=== PATIENT | female | born 1975 | race Caucasian/White ===

== ENCOUNTER 2016-10-15 15:31 | Inpatient (IN) | payer OTHER ==
[~2016-10-15] VITALS: Ht 160 cm; Wt 82.6 kg
[2016-10-15 15:36] VITALS: BP 152/84
--- NOTE | 2016-10-15 15:46 | NUR ---
PATIENT BIB BLS TO ER BED 8.
--- NOTE | 2016-10-15 15:50 | NUR ---
41F BIBA FROM PT'S DOCTOR'S OFFICE C/O EPIGASTRIC PAIN, ACHING, RADIATES TO RT LOWER ABDOMEN, 12/19 X 1 1/2 WEEKS, WORSENING TODAY; PT STATES NO N/V/D AT THIS TIME; ABDOMEN SOFT, NON-TENDER, ACTIVE BOWEL SOUNDS X 4 QUADRANTS; PT AA&OX4, PERRLA, BL LUNG SOUNDS CLEAR, RR EVEN/UNLABORED, SKIN IS WARM/DRY/INTACT AT THIS TIME; PT RESTING IN BED W/ HOB ELEVATED AND IN LOWEST POSITION; POSITIONED FOR COMFORT; ER MD MADE AWARE OF STATUS. WILL CONTINUE TO MONITOR.
--- NOTE | 2016-10-15 16:00 | NUR ---
PATIENT BEING EVALUATED BY DR. SIEGEL.
[2016-10-15] MEDS ORDERED: NACL 0.9% 1,000 ML IV ONE ×2 (16:05→19:00)
[2016-10-15] MEDS ORDERED: HYDROmorphone 1 MG/ML AMP IVP ONE (16:05)
[2016-10-15 16:35] LABS: BASOPHILS # (AUTO) 0.1 K/uL (0.00-0.22); BASOPHILS % (AUTO) 1.1 % (0.0-2.0); EOSINOPHILS # (AUTO) 0.2 K/uL (0-0.4); EOSINOPHILS % (AUTO) 2.2 % (0.0-4.0); HEMATOCRIT 41.7 % (36-48); HEMOGLOBIN 13.6 g/dL (12.0-16.0); LYMPHOCYTES % (AUTO) 8.7 % (20.5-51.1); MEAN CORPUSCULAR HEMOGLOBIN 29 pg (27-31); MEAN CORPUSCULAR HGB CONC 33 g/dL (33-37); MEAN CORPUSCULAR VOLUME 88 fL (80-94); MONOCYTES # (AUTO) 0.4 K/uL (0.8-1.0); MONOCYTES % (AUTO) 3.5 % (1.7-9.3); NEUTROPHILS # (AUTO) 9.4 K/uL (1.8-7.7); NEUTROPHILS % (AUTO) 84.5 % (42.2-75.2); PLATELET COUNT (AUTO) 236 K/uL (140-450); RED BLOOD CELL COUNT(AUTO) 4.73 MIL/uL (4.20-5.40); RED CELL DISTRIBUTION WIDTH 13.9 % (11.6-13.7); WHITE BLOOD COUNT (AUTO) 11.1 K/uL (4.8-10.8)
[2016-10-15 16:36] LABS: APPEARANCE,URINE CLEAR (CLEAR); BILIRUBIN,URINE NEGATIVE (NEGATIVE); BLOOD, URINE NEGATIVE (NEGATIVE); COLOR,URINE YELLOW (YELLOW); LEUKOCYTE ESTERASE ,URINE 1+ (NEGATIVE); NITRITE, URINE NEGATIVE (NEGATIVE); PROTEIN,URINE NEGATIVE (NEGATIVE); UGLUCOSE NEGATIVE (NEGATIVE); UROBILINOGEN,URINE 0.2 EU/dL (0.2 - 1)
[2016-10-15 16:43] LABS: BACTERIA,URINE 1+ /HPF (None Seen); MUCUS,URINE 1+ /LPF (None Seen); RBC,URINE 0-3 /HPF (0-5); SQUAMOUS EPITHELIAL CELL,UR 0-3 /LPF (0-3 (FEW)); WBC,URINE 0-3 /HPF (0-5)
[2016-10-15 16:58] LABS: ALBUMIN 3.8 g/dL (3.4-5.0); ANION GAP 17.5 (8-16); CALCIUM 8.6 mg/dL (8.5-10.1); CREATININE 0.8 mg/dL (0.6-1.3); POTASSIUM 3.5 mmol/L (3.5-5.1); TOTAL BILIRUBIN 0.2 mg/dL (0.0-1.0); TOTAL PROTEIN, SERUM 7.6 g/dL (6.4-8.2)
[2016-10-15 17:00] LABS: LACTIC ACID 0.7 mmol/L (0.4-2.0)
--- NOTE | 2016-10-15 17:58 | NUR ---
PT TAKEN TO CT VIA W/C ACCOMPANIED BY SENIOR RESIDENT CARE DIRECTOR.
--- NOTE | 2016-10-15 18:30 | NUR ---
PT APPEARS TO BE RESTING COMFORTABLY IN BED; RR EVEN/UNLABORED; POSITIONED FOR COMFORT; WILL CONTINUE TO MONITOR.
--- NOTE | 2016-10-15 19:08 | NUR ---
Pt report given to KEYON MICHAEL. Transfer of care at this time.
--- NOTE | 2016-10-15 19:10 | NUR ---
RECEIVED REPORT FROM MORNING NURSE, PT IS AAOX4, DENIES PAIN, NO SOB/DISTRESS AT THIS TIME, VSS, WAITING FOR ADMITION.
[2016-10-15] MEDS ORDERED: MORPHINE SULFATE 2 MG/ML SYR IVP PRN (19:30)
[2016-10-15] MEDS ORDERED: ACETAMINOPHEN 325 MG TAB PO PRN (19:30)
[2016-10-15] MEDS ORDERED: MORPHINE SULFATE 4 MG/ML SYR IVP PRN (19:30)
[2016-10-15] MEDS ORDERED: ONDANSETRON 4 MG/2 ML VIAL IVP PRN ×3 (19:30→23:30)
[2016-10-15] MEDS ORDERED: MEROPENEM 1,000 MG in NACL 0.9% 100 ML IV ONE (19:45)
--- NOTE | 2016-10-15 20:00 | NUR ---
REPORT GIVEN TO KEYON GARNICA, PT IS IN STABLE CONDITION, PT WILL TRANSFER TO ROOM 105B.
[2016-10-15 20:03] LABS: PROTHROMBIN TIME 9.9 secs (10.8-13.4)
[2016-10-15 20:30] VITALS: BP 119/74
--- NOTE | 2016-10-15 20:30 | NUR ---
RECEIVED PT FROM ER VIA WHEELCHAIR PT IS AAOX4 AMBULATORY HL ON RT AC GAUGE # 20 PATENT, DENIES ANY ABD PAIN PAIN MEDIC WAS GIVEN IN ER PT IS ;ORIENTED TO THE FLOOR CALL LIGHT WITHIN REACH
[2016-10-15] MEDS: NACL 0.9% 1,000 ML IV SCH (20:39)
[2016-10-15] MEDS ORDERED: MEROPENEM 1,000 MG VIAL IV ONE (21:02)
--- NOTE | 2016-10-15 21:30 | NUR ---
DR MELY MARTINES CALLED TO BE NOTIFY PT CONDITION AND ORDER TO FOLLOW
--- NOTE | 2016-10-15 22:00 | NUR ---
PT SIGN CONSENT FOR LAPAROSCOPIC APPENDECTOMY POSSIBLE OPEN, TICKET TO RIDE READY
--- NOTE | 2016-10-15 22:37 | NUR ---
DR BOONE IS HERE AND SEE THE PT
--- NOTE | 2016-10-15 22:50 | NUR ---
PT IS TAKEN TO OR
[2016-10-15] MEDS ORDERED: PHENYLEPHRINE 10 MG/ML VIAL ONE (22:58)
[2016-10-15] MEDS ORDERED: PROPOFOL 200 MG/20 ML VIAL IV ONE (22:58)
[2016-10-15] MEDS ORDERED: ROCURONIUM 50 MG/5 ML VIAL IV ONE (22:58)
[2016-10-15] MEDS ORDERED: KETOROLAC 30 MG/ML VIAL ONE (22:58)
[2016-10-15] MEDS ORDERED: DEXAMETHASONE 4 MG/ML VIAL ONE (22:58)
[2016-10-15] MEDS ORDERED: DESFLURANE 240 ML BTL INH ONE (22:58)
[2016-10-15] MEDS ORDERED: SUCCINYLCHOLINE CHLORIDE 200 MG/10 ML VIAL IVP ONE (22:58)
[2016-10-15] MEDS ORDERED: ONDANSETRON 4 MG/2 ML VIAL ONE (22:58)
[2016-10-15] MEDS ORDERED: GLYCOPYRROLATE 0.2 MG/ML VIAL ONE (22:58)
[2016-10-15] MEDS ORDERED: MIDAZOLAM 2 MG/2 ML VIAL ONE (23:10)
[2016-10-15] MEDS ORDERED: fentaNYL 0.05 MG/ML VIAL ONE (23:11)
[2016-10-15] MEDS ORDERED: BUPIVACAINE-MPF/EPI 0.25% 10 ML VIAL INJ ONE (23:12)
[2016-10-15] MEDS ORDERED: BUPIVACAINE-MPF/EPI 0.25% 30 ML VIAL INJ ONE (23:12)
[2016-10-15] MEDS ORDERED: HYDROmorphone 1 MG/ML AMP IVP PRN ×2 (23:30)
[2016-10-16] MEDS ORDERED: HYDROmorphone 1 MG/ML AMP IVP PRN (00:10)
[2016-10-16] MEDS ORDERED: ACETAMINOPHEN 325 MG TAB PO PRN (00:10)
[2016-10-16] MEDS ORDERED: MORPHINE SULFATE 4 MG/ML SYR IV PRN (00:10)
[2016-10-16] MEDS ORDERED: ONDANSETRON 4 MG/2 ML VIAL IV PRN (00:10)
[2016-10-16] MEDS: NACL 0.9% 1,000 ML IV SCH ×3 (00:11→16:46)
[2016-10-16] MEDS: HYDROmorphone PFS 2 MG/ML SYR ONE ×2 (00:23→00:33)
[2016-10-16 01:00] VITALS: BP 116/73
--- NOTE | 2016-10-16 01:00 | NUR ---
PT CAME BACK FROM SURGERY S/P LAP APPENDECTOMY , AAOX4 DENIES ANY PAIN AT THIS TIME ABD WITH THREE SMALL ABD INSICION COVERAGE WITH BAND AID DRY AND INTACT PT REORIENTED TO THE FLOOR CALL LIGHT WITHIN REACH
--- NOTE | 2016-10-16 03:00 | NUR ---
PT SLEEPING WELL DENIES ANY PAIN, ON BILATERAL SEQUENTIAL STOCKING IV ON RT AC INFUSING WELL
[2016-10-16 04:00] VITALS: BP 105/65
--- NOTE | 2016-10-16 05:00 | NUR ---
PT IS ASSISTED TO THE RESTROOM VOIDING WELL
[2016-10-16] MEDS: HYDROcodone/APAP 5/325 MG 1 TAB TAB PO PRN ×3 (05:06→15:15)
[2016-10-16] MEDS ORDERED: PIPERACILLIN/TAZOBACTAM 3.375 GM VIAL IV ONE (05:39)
[2016-10-16] MEDS: PIPER/TAZO 3.375GM/D5W PREMIX 50 ML IV SCH ×3 (05:46→18:27)
[2016-10-16 06:28] LABS: HEMATOCRIT 36.4 % (36-48); HEMOGLOBIN 12.2 g/dL (12.0-16.0); MEAN CORPUSCULAR HEMOGLOBIN 29 pg (27-31); MEAN CORPUSCULAR HGB CONC 34 g/dL (33-37); MEAN CORPUSCULAR VOLUME 88 fL (80-94); PLATELET COUNT (AUTO) 214 K/uL (140-450); RED BLOOD CELL COUNT(AUTO) 4.15 MIL/uL (4.20-5.40); RED CELL DISTRIBUTION WIDTH 13.8 % (11.6-13.7); WHITE BLOOD COUNT (AUTO) 9.6 K/uL (4.8-10.8)
--- NOTE | 2016-10-16 06:34 | NUR ---
AFTER PAIN MEDIC GIVEN PT SLEEPING WELL NOT DISTRESS NOTED IV ON RT AC INFUSING WELL
--- NOTE | 2016-10-16 06:59 | NUR ---
PATIENT HAS BEEN SCREENED AND CATEGORIZED MODERATE NUTRITION RISK. PATIENT WILL BE SEEN WITHIN 3-5 DAYS OF ADMISSION. 10/16/16-10/18/16 ALBERT ROCHA MS, RDN
[2016-10-16 07:26] LABS: BAND % (MANUAL) 1 % (0-8); EOSINOPHILS % (MANUAL) 2 % (0-4); LYMPHOCYTES % (MANUAL) 5 % (20-46); MONOCYTES % (MANUAL) 2 % (5-12); NEUTROPHILS % (MANUAL) 90 (43-65)
[2016-10-16 07:27] LABS: PLATELET ESTIMATE ADEQUATE
--- NOTE | 2016-10-16 07:30 | NUR ---
REPORT RECEIVED FROM HEPATOLOGIST PT SLEEPING QUIETLY IN NAD, RESP EVEN UNLABORED ON ROOM AIR, PT AROUSES EASILY BY VOICE, PLAN OF CARE REVIEWED, ALL QUESTIONS ASKED AND ANSWERED, BANDAIDS X3 TO ABD, MOD AMT OF DRY BLOOD ON RIGHT LAT BANDAID, THE OTHERS CLEAN DRY INTACT, ABD SOFT, TENDER TO PALP, NON DISTENDED. + BS X4 Q, CALL HOLDER WITHIN REACH, SIDE RAILS UP, BED LOCKED IN LOW POSITION, WILL CONTINUE TO MONITOR.
[2016-10-16 07:49] LABS: ANION GAP 13.4 (8-16); CALCIUM 7.7 mg/dL (8.5-10.1); CARBON DIOXIDE 23.6 mmol/L (21-32); CREATININE 0.8 mg/dL (0.6-1.3); TOTAL BILIRUBIN 0.4 mg/dL (0.0-1.0); TOTAL PROTEIN, SERUM 6.7 g/dL (6.4-8.2)
[2016-10-16 08:00] VITALS: BP 111/60
--- NOTE | 2016-10-16 08:04 | NUR ---
PT UP OUT OF BED WITHOUT ASSIST TO BATHROOM, STEADY GAIT WITH PAIN WITH MOVEMENT, C/O NAUSEA, PRN ZOFRAN GIVEN AT THIS TIME, BOYFRIEND AT BEDSIDE, WILL CONTINUE TO MONITOR.
--- NOTE | 2016-10-16 09:45 | NUR ---
UP OUT OF BED WITH MINIMAL ASSIST WITH RN TATE, AMBULATED WELL WITH STEADY GAIT AROUND THE FLOOR HALLWAY. PT MARY BETH WELL, INCENTIVE SPIROMETER TEACHING DONE, PT RETURN DEMONSTRATED WELL, PT MADE AWARE TO DO 10 BREATHS EVERY HOUR, PT VERBALIZED FULL UNDERSTANDING. PT C/O ON AND OFF PAIN, WILL MEDICATED WITH NORCO. WILL CONTINUE TO MONITOR.
[2016-10-16 12:00] VITALS: BP 111/63
--- NOTE | 2016-10-16 12:05 | NUR ---
PT UP DOING INCENTIVE SPIROMETER, PT MARY BETH WELL
--- NOTE | 2016-10-16 15:15 | NUR ---
PT C/O INCREASED PAIN AFTER AMBULATION, MEDICATED WITH NORCO AT THIS TIME, CALL HOLDER AT BEDSIDE, SIDE RAILS UP, WILL CONTINUE TO [place]
[2016-10-16 16:00] VITALS: BP 128/82
--- NOTE | 2016-10-16 19:30 | NUR ---
REPORT GIVEN TO SHIP LOADER NURSE, NADEGE BARCENAS
--- NOTE | 2016-10-16 19:31 | NUR ---
RECEIVED PT FROM JAHAIRA RN PT IS AAOX4 AMBULATORY DENIES ANY ABD PAIN THE 3 SMALLL ABD INCISION DRY AND INTACT BAND AIDS,, HL ON RT AC INFUSING WELL RELATIVES AT BED SIDE INITIAL ASSESSMENT DONE
[2016-10-16 20:00] VITALS: BP 103/64
--- NOTE | 2016-10-16 21:00 | NUR ---
PT AMBULATES AROUND THE UNITS HOLDING IV PUML POLE NOT DISTRES NOTED
[2016-10-17] VITALS: BP 104/70
--- NOTE | 2016-10-17 | NUR ---
PT SLEEPING WELL NOT DOSTRESS NOTED IV ON RT AC INFUSING WELL
[2016-10-17] MEDS: PIPER/TAZO 3.375GM/D5W PREMIX 50 ML IV SCH ×2 (00:04→06:21)
[2016-10-17 04:00] VITALS: BP 114/70
--- NOTE | 2016-10-17 04:00 | NUR ---
PT HAS BEEN MONITORING CLOSED REMAIN STABLEDENIES ANY PAIN AND HAS BEEN AMBULATING TO THE RESTROOM VOIDING WELL
[2016-10-17] MEDS: NACL 0.9% 1,000 ML IV SCH (05:22)
--- NOTE | 2016-10-17 06:22 | NUR ---
PT SLEEPING WELL IV ON RT AC INFUSING WELL DENIES ANY PAIN AT THIS TIME
[2016-10-17 06:52] LABS: BASOPHILS % (AUTO) 0.7 % (0.0-2.0); EOSINOPHILS # (AUTO) 0.1 K/uL (0-0.4); HEMATOCRIT 31.9 % (36-48); HEMOGLOBIN 10.5 g/dL (12.0-16.0); LYMPHOCYTES # (AUTO) 1.4 K/uL (2.5-16.5); LYMPHOCYTES % (AUTO) 23.3 % (20.5-51.1); MEAN CORPUSCULAR HEMOGLOBIN 29 pg (27-31); MEAN CORPUSCULAR HGB CONC 33 g/dL (33-37); MEAN CORPUSCULAR VOLUME 88 fL (80-94); MONOCYTES # (AUTO) 0.5 K/uL (0.8-1.0); MONOCYTES % (AUTO) 8.8 % (1.7-9.3); NEUTROPHILS # (AUTO) 4.2 K/uL (1.8-7.7); NEUTROPHILS % (AUTO) 66.2 % (42.2-75.2); PLATELET COUNT (AUTO) 188 K/uL (140-450); RED BLOOD CELL COUNT(AUTO) 3.64 MIL/uL (4.20-5.40); RED CELL DISTRIBUTION WIDTH 14.1 % (11.6-13.7); WHITE BLOOD COUNT (AUTO) 6.2 K/uL (4.8-10.8)
--- NOTE | 2016-10-17 07:05 | NUR ---
RECEIVED REPORT FROM NIGHT NURSE, PT IS AAOX4, ON ROOM AIR, IV TO RIGHT AC 20G INFUSING WELL, S/P LAP APPY WITH 3 ABD BAND AIDS. INITIAL ASSESSMENT COMPLETED, ALL SAFETY PRECAUTIONS MET. REVIEWED PLAN OF CARE WITH PT, PT VERBALIZED UNDERSTANDING, ALL NEEDS MET. WILL CONTINUE TO MONITOR.
[2016-10-17 07:44] VITALS: BP_SYST 110; BP_SYST 114; BP_DIAS 64; BP_DIAS 73
--- NOTE | 2016-10-17 09:45 | NUR ---
PT CURRENTLY RESTING IN BED, NO S/S OF DISTRESS NOTED. FAMILY AT BEDSIDE, WILL CONTINUE TO MONITOR.
[2016-10-17] MEDS ORDERED: ACET-5629 PO (11:01)
--- NOTE | 2016-10-17 11:15 | NUR ---
DISCUSSED DISCHARGE PLAN WIT PT, PT VERBALIZED UNDERSTANDING.
--- NOTE | 2016-10-17 11:25 | NUR ---
PT SIGNED ALL DISCHARGE PAPERWORK, DISCHARGE INSTRUCTIONS GIVEN, FOLLOW UP INSTRUCTIONS GIVEN, PRESCRIPTION GIVEN, PT VERBALIZED UNDERSTANDING, IV REMOVED TIP INTACT, ARMBAND REMOVED, ALL PERSONAL BELONGING WITH PT, AWAITING FOR FAMILY TO PICK PT UP.
--- NOTE | 2016-10-17 12:40 | NUR ---
PT WAS WHEELED OU TO FRONT LOBBY IN STABLE CONDITION.
--- NOTE | 2016-10-17 12:51 | NUR ---
PICTURE TAKEN 3 ABD INCISIONS TOTAL OF 8 GUIDO.
--- NOTE | 2016-10-18 08:19 | NUR ---
RETRO ER REPORT, H&P, CONSULT AND OPERATIVE REPORT FAXED TO [facility] [phone] PHONE SEPTEMBER [phone]
== END 2016-10-17 12:40 | disposition home or self-care (01) | DRG 225 ==
LOC: MED 15:31 → MTU 19:29
PROVIDERS: ADMIT Hospitalist; ATTEND Hospitalist
PROC: 0DTJ4ZZ Resection of Appendix, Percutaneous Endoscopic Approach (ICD-10-PCS; principal; 2016-10-16)
DX: K35.80 Unspecified acute appendicitis (principal)
CPT/HCPCS: 36415; 80053; 81001; 82150; 83605; 83690; 84484; 84703; 85025; 85610; 87040; 87081; 87086; 96361; 96374; 99285; J0330; J1100; J1170; J1885; J2185; J2250; J2370; J2405; J2543; J2704; J3010; J3490; J7030; Q9967

== ENCOUNTER 2016-10-21 18:46 | Emergency (ER) | payer OTHER ==
[~2016-10-21] VITALS: Ht 160 cm; Wt 81.6 kg
[~2016-10-21 18:46] MED LIST: ACET-5629 PO
[2016-10-21 18:53] VITALS: BP 127/78
[2016-10-21] MEDS ORDERED: ONDANSETRON 4 MG/2 ML VIAL IVP ONE (19:25)
[2016-10-21] MEDS ORDERED: KETOROLAC 30 MG/ML VIAL IVP ONE (19:25)
--- NOTE | 2016-10-21 19:30 | NUR ---
BIB WHEELCHAIR TO ER OF2
--- NOTE | 2016-10-21 19:42 | NUR ---
MOVED TO ER BED 5
--- NOTE | 2016-10-21 19:46 | NUR ---
41Y/F PATIENT PRESENTS TO ED WITH C/O ABDOMINAL PAIN X 1 DAY . PT STATES S/P APPENDECTOMY, D/C HOME LAST TUESDAY, TODAY HAVING SEVERE PAIN, NOFEVER . DENIES N/V/D; SKIN IS PINK/WARM/DRY; AAOX4 WITH EVEN AND STEADY GAIT; LUNGS CLEAR BL; HR EVEN AND REGULAR; PT DENIES ANY FEVER, CP, SOB, OR COUGH AT THIS TIME; PATIENT STATES PAIN OF 10/10 AT THIS TIME; VSS; PATIENT POSITIONED FOR COMFORT; HOB ELEVATED; BEDRAILS UP X2; BED DOWN. ER MD MADE AWARE OF PT STATUS.
[2016-10-21 19:51] LABS: BASOPHILS # (AUTO) 0.1 K/uL (0.00-0.22); BASOPHILS % (AUTO) 1.1 % (0.0-2.0); EOSINOPHILS # (AUTO) 0.2 K/uL (0-0.4); EOSINOPHILS % (AUTO) 2.2 % (0.0-4.0); HEMATOCRIT 44.1 % (36-48); HEMOGLOBIN 14.6 g/dL (12.0-16.0); LYMPHOCYTES # (AUTO) 1.6 K/uL (2.5-16.5); MEAN CORPUSCULAR HEMOGLOBIN 29 pg (27-31); MEAN CORPUSCULAR HGB CONC 33 g/dL (33-37); MEAN CORPUSCULAR VOLUME 87 fL (80-94); MONOCYTES # (AUTO) 0.6 K/uL (0.8-1.0); MONOCYTES % (AUTO) 8.2 % (1.7-9.3); NEUTROPHILS # (AUTO) 5.3 K/uL (1.8-7.7); NEUTROPHILS % (AUTO) 67.5 % (42.2-75.2); PLATELET COUNT (AUTO) 360 K/uL (140-450); RED BLOOD CELL COUNT(AUTO) 5.07 MIL/uL (4.20-5.40); RED CELL DISTRIBUTION WIDTH 13.6 % (11.6-13.7); WHITE BLOOD COUNT (AUTO) 7.8 K/uL (4.8-10.8)
--- NOTE | 2016-10-21 19:55 | NUR ---
PT AAO, C/O MID UPPER ABDOMINAL PAIN, NOTED GUIDO 5 ON ABDOMEN AND SMALL GREENISH BRUISE ON RIGHT UPPER ABDOMEN,ENCOURAGED PT NOT TO TOUCH GUIDO AND PT AGREED WITH IT.
[2016-10-21 19:56] LABS: APPEARANCE,URINE HAZY (CLEAR); BLOOD, URINE NEGATIVE (NEGATIVE); COLOR,URINE YELLOW (YELLOW); LEUKOCYTE ESTERASE ,URINE 1+ (NEGATIVE); NITRITE, URINE NEGATIVE (NEGATIVE); PROTEIN,URINE TRACE (NEGATIVE); UGLUCOSE NEGATIVE (NEGATIVE); UROBILINOGEN,URINE 0.2 EU/dL (0.2 - 1)
[2016-10-21 20:03] LABS: BILIRUBIN,URINE NEGATIVE (NEGATIVE)
[2016-10-21 20:03] LABS: ANION GAP 15.8 (8-16); CARBON DIOXIDE 25.2 mmol/L (21-32); CREATININE 0.9 mg/dL (0.6-1.3)
[2016-10-21 20:08] LABS: TOTAL BILIRUBIN 0.3 mg/dL (0.0-1.0); TOTAL PROTEIN, SERUM 8.4 g/dL (6.4-8.2)
[2016-10-21 20:10] LABS: BACTERIA,URINE 2+ /HPF (None Seen); RBC,URINE 0-3 /HPF (0-5); SQUAMOUS EPITHELIAL CELL,UR 40-60 /LPF (0-3 (FEW)); WBC,URINE 15-30 /HPF (0-5)
--- NOTE | 2016-10-21 20:14 | NUR ---
DR. FINLEY AT BEDSIDE
--- NOTE | 2016-10-21 20:19 | NUR ---
PT FOR CT VIA WHEELCHAIR PT AAO
--- NOTE | 2016-10-21 20:37 | NUR ---
PT BACK FROM CT, PT AAO,FAMILY AT BEDSIDE
--- NOTE | 2016-10-21 20:58 | NUR ---
PT AAO, FAMILY AT BEDSIDE, VITAL SIGN STABLE, NO VOMITTING NOTED, PER PT PAIN IS MINIMAL
--- NOTE | 2016-10-21 22:28 | NUR ---
INFORMED PT RESULT OF CT NOT YET AVAILABLE AT THIS TIME, PT AAO, VITAL SIGN STABLE
--- NOTE | 2016-10-21 23:17 | NUR ---
CALL PLACE TO CT TO FOLLOW UP RESULT OF CT, PER SHAYAN THEY ARE WORKING ON IT,
--- NOTE | 2016-10-21 23:18 | NUR ---
PT INFORMED NO RESULT OF CT YET AT THIS TIME
--- NOTE | 2016-10-21 23:35 | NUR ---
DR. FINLEY AT BEDSIDE
[2016-10-22] VITALS: BP 105/64
--- NOTE | 2016-10-22 00:01 | NUR ---
Patient discharged with v/s stable. Written and verbal after care instructions given and explained. Patient alert, oriented and verbalized understanding of instructions. Ambulatory with steady gait. All questions addressed prior to discharge. ID band removed. Patient advised to follow up with PMD. Rx of CIPRO given. Patient educated on indication of medication including possible reaction and side effects. Opportunity to ask questions provided and answered.ENCOURAGED FLUID INTAKE,HAND HYGIENE AND PT AGREED WITH IT.
== END 2016-10-21 22:15 | disposition home or self-care (01) ==
LOC: MED 18:46
DX: N39.0 Urinary tract infection, site not specified (principal); Z90.89 Acquired absence of other organs; Z79.899 Other long term (current) drug therapy
CPT/HCPCS: 36415; 74177; 80053; 81001; 81025; 83690; 85025; 87086; 87186; 96374; 96375; 99285; J1885; J2405; Q9967